=== PATIENT | female | born 2000 | race Caucasian/White ===

== ENCOUNTER → 2021-07-21 11:11 | Outpatient (BNVA) | payer MEDICAID, SELFPAY | PROVIDERS: Family Provider Nurse Practitioner Family; Visit Provider Obstetrics & Gynecology | DX: Z20.2 Contact with and (suspected) exposure to infections with a predominantly sexual mode of transmission (principal) | CPT/HCPCS: 87491; 87591; 87661 ==

== ENCOUNTER → 2021-07-28 09:18 | Outpatient (BNVA) | payer MEDICAID, SELFPAY | PROVIDERS: Family Provider Nurse Practitioner Family; Visit Provider Obstetrics & Gynecology | DX: R10.32 Left lower quadrant pain (principal); N85.4 Malposition of uterus; R93.89 Abnormal findings on diagnostic imaging of other specified body structures | CPT/HCPCS: 76830 ==

== ENCOUNTER → 2021-10-25 13:23 | Outpatient (BNVA) | payer MEDICAID, SELFPAY | PROVIDERS: Family Provider Nurse Practitioner Family; Visit Provider Registered Nurse Neonatal Intensive Care | DX: N92.6 Irregular menstruation, unspecified (principal); Z20.822 Contact with and (suspected) exposure to COVID-19 | CPT/HCPCS: 87635 ==

== ENCOUNTER 2021-10-28 07:35 | Day surgery (SDC) | payer MEDICAID, SELFPAY ==
[2021-10-27 13:42] VITALS: BMI 21.2
[2021-10-28] VITALS (11 sets, daily range): BP systolic 86–144; BP diastolic 52–104; PULSE 86–111; RESP 16–18; TEMP 36.2–36.8; O2SAT 94–100
[2021-10-28 07:59] LABS: OR HCG Qualitative Urine Negative (Negative)
[2021-10-28] MEDS: sodium chloride 0.9% 1,000 ML 30 ML IV (08:07)
[2021-10-28] MEDS: ketorolac 30 mg/mL INJ IVP ×2 (08:08→14:11)
--- NOTE | 2021-10-28 08:24 | P.ANESASSM_ITS ---
Pre-Anesthetic Assessment Height/Weight: Height 1.73 m Weight 63.503 kg Temp Pulse Resp BP Pulse Ox 98 F 100 16 144/104 100 10/28/21 07:52 10/28/21 07:52 10/28/21 07:52 10/28/21 07:52 10/28/21 07:52 Preop Diagnosis: irregular menses, pelvic pain Operation Date: 10/28/21 09:25 Proposed Procedures p Hysteroscopy w/ Myosur 86756/24104/n92.6(Not Applicable) - Tammy Weiss MD s Dilation And Curettage (D&C)(Not Applicable) - Tammy Weiss MD Familial anesthetic complications: None Was Beta Rafat taken within 24 hours: N/A Was Clonidine taken within 24 hours: N/A Last intake: Intake Last Liquid Date 10/27/21 Last Liquid Time 21:00 Last Solid Date 10/27/21 Last Solid Time 16:30 Social No alcohol and No tobacco Exam alert, oriented x 3, clear to auscultation bilaterally and regular rate & rhythm Airway Mallampati: Class I Dentition: full Anesthetic Plan ASA status: 1 Anesthesia: General Medications/Allergies Home Medications Medication Instructions Recorded Confirmed Last Taken Type norethindrone 1 mg-ethinyl 1 tab PO DAILY #84 tab 07/21/21 10/28/21 10/28/21 06 :00 Rx estradiol 20 mcg (21)-iron 75 mg (7) tablet (Loestrin Fe 10/09 (28-Day)) Allergies Allergy/AdvReac Type Severity Reaction Status Date / Time No Known Allergies Allergy Verified 10/27/21 13:41 Current Medications Generic Name Dose Route Start Last Admin Trade Name Freq PRN Reason Stop Dose Admin Sodium Chloride 1,000 mls @ 30 mls/hr 10/28/21 07:45 10/28/21 08:07 Sodium Chloride 0.9% IV 10/29/21 07:44 30 mls/hr .Q24H KUN Administration PFSH Anesthesia Medical History Heart murmur 08/13/2014 Surgical History History of tonsillectomy and adenoidectomy 09/20/2007 Family History Grandmother Breast cancer Paternal Father Hypertension Denies family history of Diabetes CAD (coronary artery disease) Clotting disorder Hyperlipidemia Chronic kidney disease (CKD) Bleeding disorder Stroke Data Anesthesia : 10/28/21 08:07 10/28/21 08:07 Cardiac Studies: No Data to Display
[2021-10-28 08:26] LABS: Basophils % 0.3 %; Eosinophils # 0.1 10^3/uL (0.0-0.8); Eosinophils % 1.3 %; Hematocrit 40.6 % (37.0-47.0); Hemoglobin 13.8 g/dL (11.5-15.3); Lymphocytes % 28.4 %; Mean Corpuscular Hemoglobin 30.8 pg (28.0-34.0); Mean Corpuscular Volume 90.6 fl (81-99); Monocytes # 0.4 10^3/uL (0.2-0.9); Monocytes % 5.7 %; Neutrophils # 4.38 10^3/uL (1.8-8.0); Neutrophils % 63.9 %; Nucleated Red Blood Cells % 0 %; Platelet Count 267 10^3/cmm (130-400); Red Blood Count 4.48 10^6/uL (4.1-5.3); White Blood Count 6.9 10^3/uL (4.5-13.0)
[2021-10-28 09:27] LABS: Anion Gap 16.9 (5-19); Blood Urea Nitrogen 8 mg/dL (6-20); Calcium 9.6 mg/dL (8.5-10.5); Carbon Dioxide 22 mmol/L (22-29); Chloride 103 mmol/L (98-107); Glomerular Filtration Rate 157.3 mL/min (90-130); Glucose 85 mg/dL (65-115); Osmolality Calculated 284 mOsm/kg (285-295); Potassium 3.9 mmol/L (3.5-5.1); Sodium 138 mmol/L (136-145)
--- NOTE | 2021-10-28 12:17 | W.PM.OPSUD ---
Surgery/Procedure H&P Update DATE OF PROCEDURE: October 28, 2021 DATE H&P PERFORMED: 10/27/21 CHANGES TO PREVIOUS DOCUMENTATION: Surgery to be performed 10/28/21 PREOP DIAGNOSIS: irregular menses, pelvic pain PLANNED PROCEDURE: Operation Date: 10/28/21 09:25 Proposed Procedures p Hysteroscopy w/ Myosur 84621/73156/n92.6(Not Applicable) - Tammy Weiss MD s Dilation And Curettage (D&C)(Not Applicable) - Tammy Weiss MD Related Problem List Diagnoses (1) Irregular menses: (2) Pelvic pain:
--- NOTE | 2021-10-28 12:19 | W.PM.OPSUD ---
Surgery/Procedure H&P Update DATE OF PROCEDURE: October 28, 2021 DATE H&P PERFORMED: 10/27/21 H&P UPDATE INFORMATION: I have reviewed H&P completed within last 30 days, I have examined patient prior to procedure and No changes to prior documentation PREOP DIAGNOSIS: irregular menses, pelvic pain PLANNED PROCEDURE: Operation Date: 10/28/21 09:25 Proposed Procedures p Hysteroscopy w/ Myosur 97411/13272/n92.6(Not Applicable) - Tammy Weiss MD s Dilation And Curettage (D&C)(Not Applicable) - Tammy Weiss MD
[2021-10-28] MEDS: miSOPROStol 200 mcg Tablet 600 MCG VAGINAL (12:57)
--- NOTE | 2021-10-28 13:58 | P.OP_ITS ---
Operative Report Date of procedure: October 28, 2021 Pre-op diagnosis: Preop Diagnosis irregular menses, pelvic pain Post-op diagnosis: same Post-op diagnosis: same with large fundal fibroid and some endometrial polyps and posterior hyperplasia Procedure done: hysteroscopy, dilation and curettage with myosure Specimens removed/disposition: endometrial curettings sent to pathology Surgeon: Tammy Weiss Anesthesia: MAC Estimated blood loss (mL): 25 IV fluids (mL): 800 Complications: none Findings: hysteroscopy deficit 230 ml Condition: stable Disposition: PACU Procedure: The patient was taken to the operating room where monitored anesthesia was administered and to be adequate. She was prepped and draped in the normal sterile fashion in the dorsal lithotomy position in [facility]. A weighted speculum was placed into the vagina and the anterior lip of the cervix grasped with a single-tooth tenaculum. The uterus was sounded to 8 cm. The cervix was dilated to 16 Amharic. The hysteroscope was advanced into the endometrial cavity. There was a large fundal fibroid visualized. There was a technical problem with the scope. It was replaced and the MyoSure device was activated and the tissue was removed. Pictures were taken pre and post procedure. All instruments were removed. The patient tolerated the procedure well. Sponge lap and needle counts were correct x3. She was taken to the recovery room in stable condition.
--- NOTE | 2021-10-28 14:07 | PM.DCS ---
Discharge Providers Date of Admission: 10/28/21 Date of Discharge: October 28, 2021 Attending Provider at Admission: carisa Attending Provider at Discharge: Tammy Weiss MD Primary Care Provider: Radha Moreira Diagnoses at Discharge Discharge Diagnosis (1) Irregular menses: Status: Acute (2) Pelvic pain: Status: Acute Reason for Visit Reason for Visit: Irregular Menstruation, unspecified Hospital Course Hospital Course The patient was admitted for surgery. She did well postoperatively and was ready for discharge. Discharge Data Studies Completed and Pending Pending at discharge Category Date Time Status ES surgery / GI images Routine Exams 10/28/21 11:31 Taken Retype for Patiets ABO/Rh Routine Lab 10/28/21 09:33 Ordered Pathology: Surgical [PTH] Routine Pth 10/28/21 13:53 Ordered Laboratory Results WBC 6.9 10^3/uL (4.5-13.0) 10/28/21 08:07 RBC 4.48 10^6/uL (4.1-5.3) 10/28/21 08:07 Hgb 13.8 g/dL (11.5-15.3) 10/28/21 08:07 Hct 40.6 % (37.0-47.0) 10/28/21 08:07 MCV 90.6 fl (81-99) 10/28/21 08:07 MCH 30.8 pg (28.0-34.0) 10/28/21 08:07 MCHC 34.0 g/dL (30.0-36.0) 10/28/21 08:07 RDW 12.0 % (12.1-15.1) L 10/28/21 08:07 Plt Count 267 10^3/cmm (130-400) 10/28/21 08:07 MPV 10.0 fL (7.4-10.4) 10/28/21 08:07 Neut % (Auto) 63.9 % 10/28/21 08:07 Lymph % (Auto) 28.4 % 10/28/21 08:07 Chambers % (Auto) 5.7 % 10/28/21 08:07 Eos % (Auto) 1.3 % 10/28/21 08:07 Baso % (Auto) 0.3 % 10/28/21 08:07 Neut # (Auto) 4.38 10^3/uL (1.8-8.0) 10/28/21 08:07 Lymph # (Auto) 2.0 10^3/uL (1.5-6.5) 10/28/21 08:07 Chambers # (Auto) 0.4 10^3/uL (0.2-0.9) 10/28/21 08:07 Eos # (Auto) 0.1 10^3/uL (0.0-0.8) 10/28/21 08:07 Baso # (Auto) 0.0 10^3/uL (0.0-0.1) 10/28/21 08:07 Nucleated RBC % (auto) 0 % 10/28/21 08:07 Nucleated RBCs # 0.0 /100WBC 10/28/21 08:07 Sodium 138 mmol/L (136-145) 10/28/21 08:07 Potassium 3.9 mmol/L (3.5-5.1) 10/28/21 08:07 Chloride 103 mmol/L (98-107) 10/28/21 08:07 Carbon Dioxide 22 mmol/L (22-29) 10/28/21 08:07 Anion Gap 16.9 (5-19) 10/28/21 08:07 BUN 8 mg/dL (6-20) 10/28/21 08:07 Creatinine 0.5 mg/dL (0.5-0.9) 10/28/21 08:07 GFR Calculation 157.3 mL/min (90-130) H 10/28/21 08:07 Glucose 85 mg/dL (65-115) 10/28/21 08:07 Calculated Osmolality 284 mOsm/kg (285-295) L 10/28/21 08:07 Calcium 9.6 mg/dL (8.5-10.5) 10/28/21 08:07 Urine HCG, Qual Negative (Negative) 10/28/21 07:35 Blood Type A Positive 10/28/21 08:08 Rho(D) Type Positive 10/28/21 08:08 Antibody Screen Negative 10/28/21 08:08 Vitals Last Vital Signs Temp 98 F 10/28/21 07:52 Pulse 100 10/28/21 07:52 Resp 16 10/28/21 07:52 BP 144/104 10/28/21 07:52 Pulse Ox 100 10/28/21 07:52 Discharge Plan Discharge Patient Disposition: Home Condition: Stable Prescriptions: Continued norethindrone-e.estradiol-iron [Loestrin Fe 10/09 (28-Day)] 1 mg-20 mcg (21)/75 mg (7) tablet 1 tab PO DAILY Qty: 84 5RF Discharge Orders: Discharge Order (Routine); Ordered 10/28/21 Ordered By: Tammy Weiss Discharge Attestations Time Spent in Discharge Care*: less than 30 min Quality Metrics Clinical Quality Measures [ No reported AMI, CVA or VTE this stay] Coding Level of Care Code Acute Chg FW DC note Diagnoses Irregular menses N92.6 Pelvic pain R10.2
--- NOTE | 2021-10-28 15:27 | ANE.PACU2 ---
Inpatient post-anesthesia follow up: Airway intact: Yes Vital signs: Temperature 98.2 F Pulse Rate 86 Respiratory Rate 16 Blood Pressure 118/81 Pulse Oximetry 99 Oxygen Delivery Me thod Room Air Oxygen Flow Rate 6 Fraction of Inspir ed Oxygen Hydration adequate: Yes Nausea and vomiting: No Pain level: 1 Mental status: Baseline
== END 2021-10-28 15:05 | disposition home or self-care (01) ==
PROVIDERS: PCP Nurse Practitioner Family; Visit Provider Obstetrics & Gynecology
PROC: 0UDB8ZZ Extraction of Endometrium, Via Natural or Artificial Opening Endoscopic (ICD-10-PCS; CPT 58558; principal; 2021-10-28 09:15)
PROC: (CPT 58120; 2021-10-28 09:15)
DX: N92.6 Irregular menstruation, unspecified (principal)
CPT/HCPCS: 58558; 36415; 80048; 81025; 84703; 85025; 86850; 86900; 88305; J0690; J1100; J1200; J1885; J2250; J2405; J3010; J7030

== ENCOUNTER → 2022-07-16 09:32 | Outpatient (BNVA) | payer MEDICAID, SELFPAY | PROVIDERS: PCP Nurse Practitioner Family; Visit Provider Obstetrics & Gynecology | DX: Z01.419 Encounter for gynecological examination (general) (routine) without abnormal findings (principal) | CPT/HCPCS: 88175 ==

== ENCOUNTER → 2022-07-28 15:04 | Outpatient (BNVA) | payer MEDICAID, SELFPAY | PROVIDERS: PCP Nurse Practitioner Family; Visit Provider Obstetrics & Gynecology | DX: R10.2 Pelvic and perineal pain (principal) | CPT/HCPCS: 76830 ==

== ENCOUNTER → 2022-07-30 13:45 | Outpatient (BNVA) | payer MEDICAID, SELFPAY | PROVIDERS: PCP Nurse Practitioner Family; Visit Provider Obstetrics & Gynecology | DX: E28.2 Polycystic ovarian syndrome (principal) | CPT/HCPCS: 83525 ==

== ENCOUNTER → 2024-10-12 11:25 | Outpatient (BNVA) | payer MEDICAID, SELFPAY | PROVIDERS: PCP Nurse Practitioner Family; Visit Provider Nurse Practitioner Women's Health | DX: Z01.419 Encounter for gynecological examination (general) (routine) without abnormal findings (principal); Z11.3 Encounter for screening for infections with a predominantly sexual mode of transmission; N92.6 Irregular menstruation, unspecified; N91.5 Oligomenorrhea, unspecified | CPT/HCPCS: 80061; 82306; 83036; 83525; 84146; 84403; 84439; 84443; 86592; 86803; 87340; 87806; 88175 ==

== ENCOUNTER → 2025-04-05 15:59 | Outpatient (BNVA) | payer OTHER, SELFPAY | PROVIDERS: PCP Nurse Practitioner Family; Visit Provider Nurse Practitioner Women's Health | DX: N92.6 Irregular menstruation, unspecified (principal) | CPT/HCPCS: 81025 ==

== ENCOUNTER → 2025-04-18 07:57 | Outpatient (BNVA) | payer OTHER, SELFPAY | PROVIDERS: PCP Nurse Practitioner Family; Visit Provider Nurse Practitioner Women's Health | DX: N83.202 Unspecified ovarian cyst, left side (principal); N83.201 Unspecified ovarian cyst, right side | CPT/HCPCS: 76830 ==

== ENCOUNTER → 2025-07-20 10:30 | Outpatient (BNVA) | payer OTHER, SELFPAY | PROVIDERS: PCP Nurse Practitioner Family; Visit Provider Nurse Practitioner Women's Health | DX: Z30.9 Encounter for contraceptive management, unspecified (principal) | CPT/HCPCS: 81025 ==

== ENCOUNTER → 2025-08-03 10:00 | Outpatient (BNVA) | payer OTHER, SELFPAY | PROVIDERS: PCP Nurse Practitioner Family; Visit Provider Nurse Practitioner Women's Health | DX: Z30.42 Encounter for surveillance of injectable contraceptive (principal) | CPT/HCPCS: 81025 ==